=== PATIENT | male | born 1985 | race African-American/Black ===

== ENCOUNTER 2024-09-27 08:23 | Emergency (ER) | payer BC, OTHER ==
[~2024-09-27] VITALS: Ht 182.9 cm; Wt 90.0 kg
[2024-09-27 08:47] VITALS: BP 144/94; PULSE 74; RESP 18; TEMP 97.8; O2SAT 99
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
--- NOTE | 2024-09-27 09:54 | DVH ---
EXAM: CT HEAD WITHOUT CONTRAST INDICATION: [facility] TECHNIQUE: CT of the head without intravenous contrast. Coronal and sagittal reformatted images are s ubmitted. Radiation Dose : 1. Head: CT Dose: CTDI volume is 58.89 mGy. Dose-length product is 1764.07 mGy*cm The dose indicators for CT are the volume Computed Tomography (CT) Dose Index (CTDIvol) and the Dose Length Product (DLP), and are measured in units of mGy and mGy-cm, respectively. These indicators are not patient dose, but values generated from the CT scanner acquisition factors. The report includes radiation exposure data for exposures received during this examination. All CT scans at this medical facility are performed using dose modulation techniques as appropriate to a performed exam including the following: Automated exposure control was utilized; adjustment of the MA and/or KV according to patient size; and use of iterative reconstruction technique. COMPARISON: None FINDINGS: There is no evidence of acute intracranial hemorrhage, extra-axial collection, mass effect, midline s hift, herniation or hydrocephalus. The ventricles, sulci and cisterns are age appropriate. The de la cruz-white differentiation is intact. The visualized paranasal sinuses and mastoid air cells are clear. No depressed calvarial fracture. The surrounding soft tissues are unremarkable. IMPRESSION: 1. No evidence of acute intracranial abnormality.
--- NOTE | 2024-09-27 10:07 | DVH ---
CT CERVICAL WITHOUT CONTRAST INDICATION: [facility] EXAM DATE: 09/27/2024 09:29 AM COMPARISON: None RADIATION DOSE: CTDIvol: 22 mGy, DLP: 716 mGy*cm PROCEDURE: Utilizing the CT scanner, contiguous axial images were obtained through the cervical spine . Coronal and sagittal reformatted images were then generated. All CT scans at this medical facility are performed using dose modulation techniques as appropriate t o a performed exam including the following: Automated exposure control was utilized; adjustment of th e MA and/or KV according to patient size; and use of iterative reconstruction technique. FINDINGS: Alignment at the craniocervical junction is maintained. The cortical margins are intact. Th e vertebral body heights and cervical alignment are normal. The facet joints show normal alignment wi thout fracture. The intervertebral disc spaces are preserved. The paraspinal soft tissues appear norm al. On axial images: the disc, thecal sac, neural foramina and facet joints are unremarkable. IMPRESSION: No cervical spine fracture or subluxation.
== END 2024-09-27 10:28 | disposition home or self-care (01) ==
LOC: ER 08:23 → EDBD 08:23 → ER 10:28
DX: M25.531 Pain in right wrist (principal); M25.561 Pain in right knee; R51.9 Headache, unspecified; M54.2 Cervicalgia; V89.2XXA Person injured in unspecified motor-vehicle accident, traffic, initial encounter; Y93.I9 Activity, other involving external motion; Y92.488 Other paved roadways as the place of occurrence of the external cause; Y99.8 Other external cause status
CPT/HCPCS: 70450; 71045; 72125; 73110; 73130